=== PATIENT | male | born 1985 | race Caucasian/White ===

== ENCOUNTER 2016-11-02 12:11 | Emergency (ER) | payer SELFPAY ==
[2016-11-02 12:42] VITALS: RESP 18; TEMP 97.9
--- NOTE | 2016-11-02 15:11 | PDOC ---
Hand / Wrist Injury HPI - General Chief Complaint: Upper Extremity Problem/Injury Stated Complaint: pain left hand Date Seen by Provider: 11/02/16 Time Seen by Provider: 12:20 Source: POSITIVE: Patient Exam Limitations: POSITIVE: No limitations Nurse's Notes Reviewed & Considered: Yes - History of Present Illness Initial Comments: The patient is a 31-year-old male who presents to the emergency department with left hand pain. He states that he fell last night onto a glass ball injuring his left hand. He has continued pain and swelling primarily in the palm of his hand however also on the dorsum of his hand at the base of his thumb and index fingers, he denies any other associated injuries or complaints. He does not have any prior history of injury or fracture to his hand. Have you received a tetanus shot in the past 10 years?: Yes - Patient Home Medications Home Medications: Home Medications HYDROcodone/APAP 5/325 Tab [Hartman 5/325 Tab] 1 - 2 each PO Q6H PRN #15 tablet - Patient Allergies Allergies/Adverse Reactions: Allergies Allergy/AdvReac Type Severity Reaction Status Date / Time No Known Allergies Allergy Verified 11/02/16 12:13 Past Medical History - heen HEENT History: Denies History Cardiovascular History: Denies History Respiratory History: Denies History Gastrointestinal History: Denies History Genitourinary History: Denies History Endocrine History: Denies History Musculoskeletal History: Denies History Prosthesis or Implant: No Neurological History: Denies History Blood Disorders: Denies History Psychiatric History: Denies History History of Sexually Transmitted Diseases: No Male Reproductive History: Denies History Cancer History: Denies History In Past Year Been Physically Harmed or Verbally Threatened: No History of MDRO: No History of Other Communicable Diseases: No Tobacco Use: Former Smoker Alcohol Use: None Substance Use Type: None Previous Surgical History: No Past Medical History Reviewed: Reviewed - No Changes ROS - Limitations ROS Limitations: No Limitations (Review of systems otherwise noncontributory) Hand / Wrist Injury Exam - General Appearance General Appearance: POSITIVE: Alert, Cooperative, No Acute Distress - Extremities Upper Extremity: POSITIVE: Other (examination of the left hand does reveal significant swelling to the dorsum of his hand primarily at the base of his thumb, index and middle fingers. He does have bruising noted to his palm at the base of the thumb and index fingers, good cap refill in his finger and thumb tips, normal sensation to the fingertips and thumb, some tenderness to the snuffbox of the left wrist) Neurovascular / Tendon: POSITIVE: Sensation Normal, Motor Normal, No Vascular Compromise, Other (limited range of motion of his hand and wrist secondary to pain) Hand / Wrist Injury Progress - Results Reviewed by me Xrays/CTs/US Reviewed by me: Yes Radiology Findings: X-ray of the left hand is negative for any obvious fracture - Patient's Progress MDM / ED Course: I do not see any obvious fracture in the left hand on x-ray however this has not been read by the radiologist yet. The patient does have significant swelling and bruising as well as pain. He was placed in a thumb spica splint. He is advised to continue ice and elevation as well as regular use of ibuprofen 600 mg every 6 hours as needed for pain. He was also given a prescription for Hartman 5/325 which she can take as needed for pain. He is advised return to the emergency room if any increased pain, numbness, worsening or change in symptoms. He is advised follow-up with orthopedic surgery in 3-5 days. - Consult Counseled: POSITIVE: Patient, RE: Radiology Results, RE: DX, RE: Need for F/U Patient Care Time - Estimated PCT Patient Care Time (In Minutes): 15 Vital Signs - Recent Vital Signs Vital Signs: Vital Signs (Last 8 hours) Temp Pulse Resp BP Pulse Ox 11/02/16 12:15 97.9 F 108 H 18 158/94 94 - VS Reviewed Vital Signs Reviewed: Yes Discharge Clinical Impression: Hand injury Discharge Disposition: Discharged to Home Condition: Stable Prescriptions / Orders: HYDROcodone/APAP 5/325 Tab [Hartman 5/325 Tab] 1 - 2 each PO Q6H PRN #15 tablet PRN Reason: Pain Patient Instructions Given at Discharge: Hand Sprain (ED) Additional Instructions: The x-ray of your hand does not show any obvious visible fracture. There is a fair amount of swelling and tenderness and is possible that there may be a fracture that we are not seeing on x-ray. Recommend that she keep your hand/ wrist in the splint placed in the emergency department. Ice and elevate the left hand. Recommend ibuprofen 600 mg every 6 hours as needed for pain/ swelling. You've also been prescribed Hartman 5/325 which he can take one or 2 every 6 hours as needed for pain. Return to the emergency room if increased pain or numbness, worsening or change in symptoms. Recommend follow-up with orthopedic surgery in 3-5 days. Follow Up With: NONE,NONE [Primary Care Provider] -
--- NOTE | 2016-11-02 21:37 | DI ---
XR HAND MIN 3VW,11/02/2016 12:21 PM: Clinical History: Injury Previous Exam: None at this facility. Findings: 3 views of the left hand are obtained, and demonstrate anatomic alignment without fractures. The surr ounding soft tissues are unremarkable. Impression: No fractures.
== END 2016-11-02 13:05 | disposition home or self-care (01) ==
LOC: ER 12:11
DX: M79.642 Pain in left hand (principal); W01.198A Fall on same level from slipping, tripping and stumbling with subsequent striking against other object, initial encounter
CPT/HCPCS: 73130; 99282

== ENCOUNTER 2016-11-07 13:08 | Emergency (ER) | payer SELFPAY ==
--- NOTE | 2016-11-07 13:11 | PDOC ---
Hand / Wrist Injury HPI - General Chief Complaint: Upper Extremity Problem/Injury Stated Complaint: HAND RECHECK Date Seen by Provider: 11/07/16 Time Seen by Provider: 13:11 Source: POSITIVE: Patient Exam Limitations: POSITIVE: No limitations Nurse's Notes Reviewed & Considered: Yes - History of Present Illness Have you received a tetanus shot in the past 10 years?: Yes Body Location Affected: REPORTS: Upper Extremity (L) Timing: REPORTS: Constant Duration: >1 week Severity: Moderate Location at Time of Onset: REPORTS: Home Context: REPORTS: Fall Location of Injury: REPORTS: Left, Hand Quality: REPORTS: "Pain" Modifying Factors: REPORTS: Movement, Rest Any Prior Injuries Related to Current Complaint?: Yes (patient fell and injured his hand over week ago and was evaluated here ) - Patient Home Medications Home Medications: Home Medications Clonazepam 1 mg PO BID 11/07/16 Lisinopril 40 mg PO DAILY 11/07/16 - Patient Allergies Allergies/Adverse Reactions: Allergies Allergy/AdvReac Type Severity Reaction Status Date / Time No Known Allergies Allergy Verified 11/07/16 13:13 Past Medical History - heen HEENT History: Denies History Cardiovascular History: Denies History Respiratory History: Denies History Gastrointestinal History: Denies History Genitourinary History: Denies History Endocrine History: Denies History Musculoskeletal History: Denies History Prosthesis or Implant: No Neurological History: Denies History Blood Disorders: Denies History Psychiatric History: Denies History History of Sexually Transmitted Diseases: No Cancer History: Denies History History of MDRO: No History of Other Communicable Diseases: No Alcohol Use: None Substance Use Type: None Previous Surgical History: No ROS - Limitations ROS Limitations: No Limitations Constitution: REPORTS: Denies Symptoms Cardiovascular: REPORTS: Denies Cardiac Symptoms Respiratory: REPORTS: Denies Resp Symptoms Neurological: REPORTS: Denies Neuro Symptoms Gastrointestinal: REPORTS: Denies GI Symptoms Endocrine: REPORTS: Denies Symptoms Musculoskeletal: REPORTS: Recent Injury (Patient with injury to his left hand after a fall onto the dorsum of his hand. He continues to have swelling and decreased range of motion secondary to pain. He recently took his splint off and the swelling began.) Genitourinary: REPORTS: Denies Symptoms Eyes: REPORTS: Denies Symptoms ENT: REPORTS: Denies Symptoms Skin: REPORTS: Denies Skin Symptoms Lympathic: REPORTS: Denies Lympathic Symptoms Immunologic: POSITIVE: Denies Symptoms Psychiatric: POSITIVE: Denies Psych Symptoms Hand / Wrist Injury Exam - General Appearance General Appearance: POSITIVE: Alert, Cooperative, No Acute Distress, No Evidence of Trauma - Extremities Upper Extremity: POSITIVE: Soft Tissue Tenderness (left hand), Swelling (left hand) Neurovascular / Tendon: POSITIVE: Sensation Normal, Motor Normal, No Vascular Compromise, Tendon Function Normal Skin: POSITIVE: Warm, Dry - HEENT HEENT: POSITIVE: Head Inspection Nml, Eyes Inspection Nml, Ears Inspection Nml, Nose Inspection Nml, PERRL, EOMI - Respiratory / CVS Respiratory / CVS: POSITIVE: No Respiratory Distress - Abdomen Abdomen: Denies Tenderness: (All Quadrants) Hand / Wrist Injury Progress - Results Reviewed by me Xrays/CTs/US Reviewed by me: Yes Discussed with Radiologist: No - Patient's Progress Re-Examine Time: 13:51 Status: POSITIVE: Unchanged MDM / ED Course: Patient was examined, x-ray of his hand was obtained. Next Findings: X-ray as read by me shows no acute osseous abnormality. Assessment: Hand pain with swelling status post fall. Plan: Discharge home. He receives a note for light duty for another week, and instructions to follow-up with orthopedics. - Consult Counseled: POSITIVE: Patient, RE: Radiology Results, RE: DX, RE: Need for F/U Patient Care Time - Estimated PCT Patient Care Time (In Minutes): 15 Vital Signs - Recent Vital Signs Vital Signs: Vital Signs (Last 8 hours) Temp Pulse Resp BP Pulse Ox 11/07/16 13:17 96.4 F L 90 18 148/116 96 - VS Reviewed Vital Signs Reviewed: Yes Discharge Clinical Impression: Pain of left hand Discharge Disposition: Discharged to Home Condition: Good Patient Instructions Given at Discharge: Arthralgia (ED)
[2016-11-07 13:26] VITALS: RESP 18; TEMP 96.4
--- NOTE | 2016-11-10 07:51 | DI ---
XR HAND MIN 3VW,11/07/2016 1:10 PM: Clinical History: Left hand pain. Previous Exam: None at this facility. Findings: 3 views of the left hand are obtained, and demonstrate anatomic alignment without fractures. Surrounding soft tissues are unremarkable. Impression: Normal left hand.
== END 2016-11-07 14:00 | disposition home or self-care (01) ==
LOC: ER 13:08
DX: M79.642 Pain in left hand (principal); R22.32 Localized swelling, mass and lump, left upper limb
CPT/HCPCS: 73130; 99282

== ENCOUNTER 2018-05-28 08:16 | Inpatient (IN) ==
[2018-05-28] MEDS ORDERED: NITROGLYCERIN 0.4 MG SL TAB (BOTTLE OF 3) SL ONE (08:25)
--- NOTE | 2018-05-28 08:33 | PDOC ---
Psych/Suicidal/OD HPI - General Chief Complaint: Psychiatric Complaint Stated Complaint: anxiety, not sleeping Date Seen by Provider: 05/28/18 Time Seen by Provider: 08:21 Source: POSITIVE: Patient Exam Limitations: POSITIVE: No limitations Nurse's Notes Reviewed & Considered: Yes - History of Present Illness Initial Comments: This is a well-developed, well-nourished, 32-year-old male, complaining of chest pain, shortness of breath, headache, sore throat, and vomiting. Patient has symptoms that have been escalating over the last several days with recent increase of personal stress related to divorce and unemployment. Patient states he has a headache, mild sore throat, chest pain that he describes as pressure without radiation. The chest pressure is a band across his chest like a tight T-shirt. He does have shortness of breath, nausea with occasional vomiting, no diarrhea, no hematuria or dysuria, he does have myalgias and arthralgias, he has subjective fever with chills and sweats. Timing: REPORTS: Constant Duration: Unknown Severity: Severe Quality: REPORTS: "Pain", Pressure Intent: DENIES: Suicide, Wants to Escape, Accidental, No Answer, No Prior Suicide Thoughts, Prior Suicidal Thoughts, Other Context: REPORTS: Situational Problems re:, Spouse, Work, Legal Problems Associated Symptoms: REPORTS: Depressed, Frustrated Arrived By: REPORTS: Private Vehicle Similar Symptoms Previously: No Recent Care Received: REPORTS: Denies Any Prior Injuries Related to Current Complaint?: No - Patient Home Medications Home Medications: Home Medications Medication Instructions Recorded Confirmed Clonazepam 1 mg PO BID 11/07/16 05/28/18 Lisinopril 40 mg PO DAILY 11/07/16 05/28/18 - Patient Allergies Allergies/Adverse Reactions: Allergies Allergy/AdvReac Type Severity Reaction Status Date / Time No Known Allergies Allergy Verified 05/28/18 08:27 Past Medical History - heen HEENT History: Denies History Cardiovascular History: Denies History Respiratory History: Denies History Gastrointestinal History: Denies History Genitourinary History: Denies History Endocrine History: Denies History Musculoskeletal History: Denies History Prosthesis or Implant: No Neurological History: Denies History Blood Disorders: Denies History Psychiatric History: Denies History History of Sexually Transmitted Diseases: No Cancer History: Denies History History of MDRO: No History of Other Communicable Diseases: No Alcohol Use: None In the Past 12 Months, Have Used or Abuse Any Substance: None Previous Surgical History: No ROS - Limitations ROS Limitations: No Limitations Constitution: REPORTS: Chills, Fever, Diaphoresis Cardiovascular: REPORTS: Chest Pain, Heart Racing Respiratory: REPORTS: Shortness Of Breath Neurological: REPORTS: Headache Gastrointestinal: REPORTS: Abdominal Pain, Nausea, Vomitting Endocrine: REPORTS: Denies Symptoms Musculoskeletal: REPORTS: Joint Pain, Muscle Aches Genitourinary: REPORTS: Denies Symptoms Eyes: REPORTS: Denies Symptoms ENT: REPORTS: Sore Throat Skin: REPORTS: Denies Skin Symptoms Lympathic: REPORTS: Denies Lympathic Symptoms Immunologic: POSITIVE: Denies Symptoms Psychiatric: POSITIVE: Anxiety, Depression Psych/Suicidal/OD Exam - General Appearance General Appearance: POSITIVE: Alert, Severe Distress, Tremors - HEENT HEENT: POSITIVE: Head Inspection Nml, Eyes Inspection Nml, Ears Inspection Nml, Nose Inspection Nml, Oral/Dental Inspect. Nml, Pharynx Inspect. Nml, PERRL, EOMI - Pupil Size Pupil Size: 5 mm: Bilateral - Neurological/Psychological Mental Status: POSITIVE: Depressed Mood, Depressed Affect Orientation: POSITIVE: Oriented x3 Cranial Nerves: POSITIVE: cost specialist Intact as Tested Sensory/Motor: POSITIVE: Normal Motor Response, Normal Sensory Response, Normal Gait - Neck/Back Neck/Back: POSITIVE: Normal Inspection, Supple - Respiratory Respiratory: POSITIVE: Breath Sounds Normal, Other (Tachypnea) - CVS Cardiovascular: POSITIVE: Heart Sounds Normal, Strong Pulses, Tachycardia Peripheral Pulses: Radial (L): 4+ - Abdomen Abdomen: Soft: (All Quadrants), Normal Bowel Sounds: (All Quadrants), Denies Tenderness: (All Quadrants), No Splenomegaly: (All Quadrants), No Hepatomegaly: (All Quadrants), No Guarding: (All Quadrants), No Rebound: (All Quadrants), No Palpable Pulse: (All Quadrants), No Palpabale Mass: (All Quadrants), No Distention: (All Quadrants), No Rigidity: (All Quadrants) - Skin Skin: POSITIVE: Intact, Normal For Race, Warm, Dry, No Rash - Extremities Extremity: Non-Tender: (All Extremities), Normal ROM: (All Extremities), Normal Inspection: (All Extremities) Psych/Suicidal/OD Progress - Results Reviewed by me CBC and BMP: 05/28/18 08:28 05/28/18 08:28 Lab Results:: Laboratory Results 05/28/18 05/28/18 05/28/18 08:28 08:28 08:28 WBC 9.69 RBC 5.11 Hgb 18.4 H Hct 50.5 MCV 98.8 H MCH 36.0 H MCHC 36.4 RDW Std Deviation 46.0 RDW Coeff of [place] 12.8 Plt Count 336 MPV 8.9 Neutrophils % (Manual) 60 Band Neutrophils % 1 Lymphocytes % (Manual) 25 Monocytes % (Manual) 10 Eosinophils % (Manual) 3 Basophils % (Manual) 1 Metamyelocytes % 0 Myelocytes % 0 Promyelocytes % 0 Blast Cells 0 WBC Morphology Comment See comments Plt Morphology Comment Normal morphology RBC Morph Comment See comments D-Dimer 0.65 H VBG pH VBG pCO2 VBG HCO3 VBG Base Excess Sodium 140 Potassium 3.9 Chloride 99 Carbon Dioxide 21 L Anion Gap 20 BUN 11 Creatinine 0.8 Estimated GFR > 60 BUN/Creatinine Ratio 13.75 Glucose 103 Calculated Osmolality 288.0 Lactic Acid Calcium 9.1 Magnesium 1.6 Total Bilirubin 1.3 H AST 87 H ALT 54 Alkaline Phosphatase 72 Troponin I Handheld NT-Pro-B Natriuret Pep 26.4 Total Protein 9.0 H Albumin 5.1 H Globulin 3.9 Albumin/Globulin Ratio 1.30 Lipase 130 Salicylates < 1.0 Acetaminophen < 10.0 Serum Alcohol 18 H 05/28/18 05/28/18 05/28/18 08:28 08:28 08:35 WBC RBC Hgb Hct MCV MCH MCHC RDW Std Deviation RDW Coeff of [place] Plt Count MPV Neutrophils % (Manual) Band Neutrophils % Lymphocytes % (Manual) Monocytes % (Manual) Eosinophils % (Manual) Basophils % (Manual) Metamyelocytes % Myelocytes % Promyelocytes % Blast Cells WBC Morphology Comment Plt Morphology Comment RBC Morph Comment D-Dimer VBG pH 7.53 H VBG pCO2 30 L VBG HCO3 25 VBG Base Excess 3 H Sodium Potassium Chloride Carbon Dioxide Anion Gap BUN Creatinine Estimated GFR BUN/Creatinine Ratio Glucose Calculated Osmolality Lactic Acid 5.4 H Calcium Magnesium Total Bilirubin AST ALT Alkaline Phosphatase Troponin I Handheld 0.000 NT-Pro-B Natriuret Pep Total Protein Albumin Globulin Albumin/Globulin Ratio Lipase Salicylates Acetaminophen Serum Alcohol EKG Interpreted/Reviewed By Me:: Yes (sinus tachycardia with no ST elevations.) EKG Interpretation:: POSITIVE: Abnormal EKG - Patient's Progress Pain Medication Addressed: POSITIVE: Yes Re-Examine Time: 09:15 Status: POSITIVE: Improved MDM / ED Course: Patient was evaluated, an IV started, blood drawn and sent to the lab for studies, EKG was obtained. CT scan of his chest was ordered. The end of my shift is occurred and Dr. Jama Dyer has taken over care of this patient for elucidation of laboratory findings, radiographic findings, and disposition please see his dictation. Working assessment: #1 tachycardia. #2 anxiety. #3 probable alcohol withdrawal versus methamphetamine abuse. Patient Care Time - Estimated PCT Patient Care Time (In Minutes): 30 Vital Signs - VS Reviewed Vital Signs Reviewed: Yes Discharge Clinical Impression: Tachycardia, Anxiety, Alcohol withdrawal Condition: Stable Follow Up With: NONE,NONE [Primary Care Provider] -
[2018-05-28] MEDS ORDERED: ONDANSETRON 4 MG/2 ML VIAL IVP ONE (08:35)
[2018-05-28] MEDS ORDERED: KETOROLAC 15 MG/1 ML VIAL IVP ONE (08:35)
[2018-05-28] MEDS ORDERED: LORazepam 2 MG/1 ML VIAL IVP ONE ×2 (08:35→10:32)
[2018-05-28] MEDS ORDERED: Sodium Chloride 0.9% 1,000 ML PRIMARY IV ONE (08:35)
[2018-05-28 08:45] LABS: VENOUS PH 7.53 (7.32-7.42)
[2018-05-28 08:47] LABS: Hematocrit [HCT] 50.5 % (42.0-52.0); Hemoglobin [HGB] 18.4 g/dL (14.0-18.0); MEAN CORPUSCULAR HGB CONC 36.4 g/dL (33-37); MEAN CORPUSCULAR VOLUME 98.8 FL (80-90); MEAN PLATELET VOLUME 8.9 FL (7.4-12.2); RED BLOOD COUNT 5.11 10^6/uL (4.70-6.10)
[2018-05-28 08:59] LABS: BLOOD UREA NITROGEN 11 mg/dL (7-22); BUN/CREATININE RATIO 13.75 (6-20); LIPASE 130 IU/L (23-300); SERUM ALBUMIN 5.1 g/dL (3.5-4.8)
[2018-05-28 09:01] LABS: SALICYLATE < 1.0 mg/dl (0-20)
[2018-05-28 09:09] LABS: BAND NEUTROPHILS % 1 % (0-10); BASOPHILS % (MANUAL) 1 % (0-1); EOSINOPHILS % (MANUAL) 3 % (0-8); METAMYELOCYTES % 0 %; MONOCYTES % (MANUAL) 10 % (0-12); MYELOCYTES % 0 %; NEUTROPHILS % (MANUAL) 60 % (50-80); PLATELET MORPHOLOGY COMMENT NORMAL MORPHOLOGY (NORM); PROMYELOCYTES % 0 %; RBC MORPHOLOGY COMMENT SEE COMMENTS (NORM); WBC MORPHOLOGY COMMENT SEE COMMENTS (NORM)
--- NOTE | 2018-05-28 09:12 | DI ---
AP CHEST X-RAY, 05/28/2018 8:35 AM : Clinical History: Chest pain. Shortness of breath. Previous Exam: 10/16/2008. Soft Tissues: No acute soft tissue or bony abnormality. Heart: Normal heart. Lungs: No infiltrate or effusion. Mediastinum: Normal mediastinum. Nodules: No pulmonary nodules. Bones: Normal. Reading: Normal chest x-ray. There has been no significant interval change.
[2018-05-28] MEDS ORDERED: Sodium Chloride 0.9% 1,000 ML, Magnesium Sulfate 2gm (Premix) 50 ML with Multivitamin I... IV ONE ×5 (09:19)
[2018-05-28] MEDS ORDERED: Sodium Chloride 0.9% 1,000 ML with Multivitamin Inj 10 ML, Thiamine Inj 100 MG, Folic A... IV ONE ×5 (09:45)
--- NOTE | 2018-05-28 10:11 | DI ---
CT CTA Chest Non-Coronary WWO 05/28/2018 8:35 AM History: [facility] [place] [facility] ^cp/sob/tachy Comparison: Chest x-ray from earlier the same day. Procedure: CT angiography of the pulmonary arteries was performed after the administration of 70 mL o f Isovue intravenous contrast. Findings: There is normal opacification of the pulmonary arteries with no evidence of filling defect. Evaluation of the lungs demonstrates lingular scar versus atelectasis with no consolidation, pneumot horax, or pleural effusion. Multiple bilateral pulmonary nodules are noted on series 3 as follows: le ft lower lobe 5 mm image 39, right upper lobe 3 mm calcified subpleural granuloma image 43, right upp er lobe 2 mm image 45, right oblique fissure 4 mm elsy-fissural nodule image 50, right lower lobe 3 m m image 55. The airways are patent with no endobronchial lesion. There is no mediastinal or hilar lym phadenopathy. The aorta and branch vessels demonstrate normal course and caliber. Heart size is withi n normal limits with no pericardial effusion. The thyroid exhibits normal CT morphology. The visualized upper abdominal structures are unremarkable. The osseous structures are normal for age. There is no evidence of acute or healing rib fractures. Impression: 1. No main or segmental pulmonary embolism. 2. Multiple bilateral pulmonary nodules, the largest measuring 5 mm in the left lower lobe. [place] [employer] 2017 guidelines for management of incidentally detected pulmonary nodules is as follows: Single solid lung nodule less than 6 mm: Low risk: No routine follow-up. High risk: Optional CT at 12 months.
--- NOTE | 2018-05-28 11:09 | PDOC ---
Transfer of Care - Care Accepted Time Care Transferred: 09:00 Report from Transferring Physician Received: Yes (Dr. Melgar) MDM / ED Course: The patient is a 32-year-old male who presented to the emergency department with multiple complaints. Please refer to Dr. Melgar's note for details of his initial presentation. Patient care was transferred with labs, CT of the chest and mental health consultation pending. The patient does admit that he has had a lot of stress the past couple of years. He has been going through divorce and was laid off from his job 2 years ago. He states that he has been drinking heavily especially last week. He has been drinking either 240 ounce beers or a fifth daily, sometimes more. He last had anything to drink on Thursday. When he presented here to the emergency department his CIWA score was 40. He did receive 2 mg of Ativan as well as a bolus of fluid. He was hypertensive and tachycardic with heart rate in the 140s to 150s initially. He also reports that he has not taken his lisinopril for several months as he has been unable to afford medications. Home Medications: Home Medications Clonazepam 1 mg PO BID 11/07/16 Lisinopril 40 mg PO DAILY 11/07/16 Allergies/Adverse Reactions: Allergies No Known Allergies Allergy (Verified 05/28/18 08:27) Vital Signs Reviewed: Yes - Pending Patient Care Items Pending Patient Care Items: POSITIVE: Labs, CT / MRI Results, Psychiatric Consult - Re-Evaluation of Patient Disposition of Patient: POSITIVE: Admitted Counseled: POSITIVE: Patient, RE: Lab Results, RE: Radiology Results, RE: DX, RE: Need for F/U Clinical Impression Documented: Yes - Results Reviewed Lab Results: Laboratory Results 05/28/18 05/28/18 05/28/18 08:28 08:28 08:28 WBC 9.69 RBC 5.11 Hgb 18.4 H Hct 50.5 MCV 98.8 H MCH 36.0 H MCHC 36.4 RDW Std Deviation 46.0 RDW Coeff of [place] 12.8 Plt Count 336 MPV 8.9 Neutrophils % (Manual) 60 Band Neutrophils % 1 Lymphocytes % (Manual) 25 Monocytes % (Manual) 10 Eosinophils % (Manual) 3 Basophils % (Manual) 1 Metamyelocytes % 0 Myelocytes % 0 Promyelocytes % 0 Blast Cells 0 WBC Morphology Comment See comments Plt Morphology Comment Normal morphology RBC Morph Comment See comments D-Dimer 0.65 H VBG pH VBG pCO2 VBG HCO3 VBG Base Excess Sodium 140 Potassium 3.9 Chloride 99 Carbon Dioxide 21 L Anion Gap 20 BUN 11 Creatinine 0.8 Estimated GFR > 60 BUN/Creatinine Ratio 13.75 Glucose 103 Calculated Osmolality 288.0 Lactic Acid Calcium 9.1 Magnesium 1.6 Total Bilirubin 1.3 H AST 87 H ALT 54 Alkaline Phosphatase 72 CK-MB (CK-2) Troponin I Handheld C-Reactive Protein NT-Pro-B Natriuret Pep 26.4 Total Protein 9.0 H Albumin 5.1 H Globulin 3.9 Albumin/Globulin Ratio 1.30 Lipase 130 TSH Free T4 Salicylates < 1.0 Acetaminophen < 10.0 Serum Alcohol 18 H Group A Strep Screen 05/28/18 05/28/18 05/28/18 08:28 08:28 08:28 WBC RBC Hgb Hct MCV MCH MCHC RDW Std Deviation RDW Coeff of [place] Plt Count MPV Neutrophils % (Manual) Band Neutrophils % Lymphocytes % (Manual) Monocytes % (Manual) Eosinophils % (Manual) Basophils % (Manual) Metamyelocytes % Myelocytes % Promyelocytes % Blast Cells WBC Morphology Comment Plt Morphology Comment RBC Morph Comment D-Dimer VBG pH VBG pCO2 VBG HCO3 VBG Base Excess Sodium Potassium Chloride Carbon Dioxide Anion Gap BUN Creatinine Estimated GFR BUN/Creatinine Ratio Glucose Calculated Osmolality Lactic Acid 5.4 H Calcium Magnesium Total Bilirubin AST ALT Alkaline Phosphatase CK-MB (CK-2) 0.44 Troponin I Handheld 0.000 C-Reactive Protein NT-Pro-B Natriuret Pep Total Protein Albumin Globulin Albumin/Globulin Ratio Lipase TSH 3.52 Free T4 0.67 L Salicylates Acetaminophen Serum Alcohol Group A Strep Screen 05/28/18 05/28/18 05/28/18 08:35 08:50 09:18 WBC RBC Hgb Hct MCV MCH MCHC RDW Std Deviation RDW Coeff of [place] Plt Count MPV Neutrophils % (Manual) Band Neutrophils % Lymphocytes % (Manual) Monocytes % (Manual) Eosinophils % (Manual) Basophils % (Manual) Metamyelocytes % Myelocytes % Promyelocytes % Blast Cells WBC Morphology Comment Plt Morphology Comment RBC Morph Comment D-Dimer VBG pH 7.53 H VBG pCO2 30 L VBG HCO3 25 VBG Base Excess 3 H Sodium Potassium Chloride Carbon Dioxide Anion Gap BUN Creatinine Estimated GFR BUN/Creatinine Ratio Glucose Calculated Osmolality Lactic Acid Calcium Magnesium Total Bilirubin AST ALT Alkaline Phosphatase CK-MB (CK-2) Troponin I Handheld C-Reactive Protein < 0.5 NT-Pro-B Natriuret Pep Total Protein Albumin Globulin Albumin/Globulin Ratio Lipase TSH Free T4 Salicylates Acetaminophen Serum Alcohol Group A Strep Screen Negative EKG Interpretation:: POSITIVE: Other (EKG shows sinus tachycardia with no acute changes otherwise) - Consult Recommendations:: The patient was feeling better after 2 mg of Ativan and a fluid bolus. He did receive a banana bag. His pulse remained in the 120s and blood pressure remained in the 160s/110's. His CIWA score came down to 21 from 40. He received a second dose of Ativan 1 mg IV. His workup was relatively unremarkable other than a mildly elevated d-dimer and elevated lactate. CTA of the chest was negative for PE however did show several small (less than 5 mm) nodules in the lung bases. Mental health consultation was obtained from [facility]. He has agreed to pursue alcohol treatment as an outpatient and has an appointment on Thursday afternoon to discuss this. The patient does appear to be having significant alcohol withdrawal and decision was made to admit for further treatment. Dr. Stone has agreed to admit the patient. The patient is in agreement with this plan. Patient Care Time - Estimated PCT Patient Care Time (In Minutes): 25 Vital Signs - Recent Vital Signs Vital Signs: Vital Signs (Last 8 hours) Temp Pulse Pulse Resp BP BP Pulse Ox 05/28/18 10:31 98.1 F 111 H 20 162/110 05/28/18 08:20 96 F L 148 H 148 H 22 162/119 162/119 95 - VS Reviewed Vital Signs Reviewed: Yes Discharge Clinical Impression: Tachycardia, Anxiety, Alcohol withdrawal, Hypertension Discharge Disposition: Admit to Inpatient Condition: Stable Follow Up With: NONE,NONE [Primary Care Provider] - Date Decision to Admit to Inpatient: 05/28/18 Time Decision to Admit to Inpatient: 10:55
--- NOTE | 2018-05-28 11:18 | EKG ---
[address] [address] Measurements Intervals Switchback Rate: 131 P: 47 NV: 150 QRS: -7 QRSD: 89 T: 46 QT: 300 QTc: 377 Interpretive Statements SINUS TACHYCARDIA WITH OCCASIONAL VENTRICULAR PREMATURE COMPLEXES ABNORMAL RHYTHM ECG No previous ECG available for comparison Electronically Signed On 05-28-18 17:20:25 MST by A[facility] H[facility]os [email or web address]
[2018-05-28 11:57] VITALS: RESP 16
[2018-05-28] MEDS ORDERED: NICOTINE 21 MG /DAY PATCH TRANSDERM PRN (12:06)
[2018-05-28] MEDS ORDERED: MAG HYDROX/AL HYDROX/SIMETH 30 ML SUSP PO PRN (12:06)
[2018-05-28] MEDS ORDERED: Sodium Chloride 0.9% 1,000 ML with Multivitamin Inj 10 ML, Thiamine Inj 100 MG, Folic A... IV SCH ×5 (12:06)
[2018-05-28] MEDS ORDERED: LIDOCAINE W/ SODIUM BICARB 0.5 ML SYR SUBD PRN (12:06)
[2018-05-28] MEDS ORDERED: ONDANSETRON 4 MG/2 ML VIAL IVP PRN (12:06)
[2018-05-28] MEDS ORDERED: Loperamide Tab 2 MG TABLET PO PRN (12:06)
[2018-05-28] MEDS ORDERED: ACETAMINOPHEN 500 MG TABLET PO PRN (12:06)
[2018-05-28] MEDS ORDERED: MAGNESIUM 400 MG/5 ML - 30 ML (MILK OF MAGNESIA) PO PRN (12:06)
[2018-05-28 12:14] VITALS: BP 145/103; TEMP 98.4; O2SAT 95
[2018-05-28] MEDS ORDERED: Patch Removal PATCH TRANSDERM PRN (12:20)
--- NOTE | 2018-05-28 14:06 | PDOC ---
HPI - History of Present Illness Date of Service: 05/28/18 Time of Service: 13:49 Chief Complaint: palpitations History of Present Illness: This is a 32 year old who presented to the emergency room with palpitations. He has been drinking alcohol heavily over the past two years due to a divorce, deaths in the family, loss of job. He stopped drinking alcohol a few days ago stating he felt sick drinking alcohol. The pounding in his chest started today. He did not have shortness of breath. He was given ativan for withdrawal symptoms and improved. EKG shows SVT with PVC. Has nausea but no vomiting. Went to an AA meeting in the past, but no prior rehab attempts. He says he wants to quit alcohol. He talked with [facility] and has an appointment with them on Thursday. The palpitations are resolved with alcohol withdrawal tr eatment to this point. Images were negative for blood clots. No other exacerbating factors. He felt like he was in a diet with the symptoms which is why he came into the emergency room. He states specifically that he does not have any suicidal thoughts or homicidal ideation. Past Medical History Medical History: 1. alcohol abuse. 2. Tobacco abuse. 3. Has been treated with lisinopril for hypertension but has not been on therapy for some time. He cannot afford it. Surgical History: no prior surgeries Pertinent Family History: no diabetes and no coronary artery disease Past Social History: . Has 2 children described as healthy. Not working currently. Lives with his parents in [place], [place], heavy alcohol use and smokes tobacco Tobacco Use: Current Every Day Smoker In the Past 12 Months, Have Used or Abuse Any of the Following Substance: None Alcohol Use: Heavy Medication / Allergies Home Medications: Home Medications Medication Instructions Recorded Confirmed Type Clonazepam 1 mg PO BID 11/07/16 05/28/18 History Lisinopril 40 mg PO DAILY 11/07/16 05/28/18 History Allergies/Adverse Reactions: Allergies Allergy/AdvReac Type Severity Reaction Status Date / Time No Known Allergies Allergy Verified 05/28/18 12:07 Review of Systems - Review of Systems All Systems: Reviewed & No Additional Complaints Except as Stated (I did a 12 point review systems and other than that discussed in history present illness the review systems is negative.) Exam - Vitals Vital Signs: Vital Signs Temperature 98.4 F Temperature Source Oral Pulse Rate [Pulse Oximeter] 98 Pulse Rate 100 Respiratory Rate 16 Blood Pressure [Left Arm] 145/103 Blood Pressure 145/103 Pulse Ox 95 Oxygen Delivery Method Room Air Height 6 ft 1 in Weight 223 lb 9.6 oz - General General Appearance: No Acute Distress, Cooperative - Head Head Exam: Normal Inspection, Normocephalic, Atraumatic - Eye Eye Exam: POSITIVE: No Scleral Icterus - ENT ENT Exam: POSITIVE: Mucous Membranes Moist - Neck Neck Exam: Normal Inspection, No Tenderness, No Lymphadenopathy, No Thyromegaly, JVP is not Raised - Respiratory Respiratory Exam: POSITIVE: Clear to Auscultation - Bilaterally, Breathing Non Labored, Normal to Percussion and Palpation - Cardiovascular Cardiovascular Exam: POSITIVE: RRR, No Murmur, No Clicks, No Gallops, No Rubs, No JVD Additional Cardiovascular Details: Not tachycardic when I examined him. - GI/Abdominal GI/Abdominal Exam: POSITIVE: Normal Bowel Sounds, Non Tender, Non Distended, Soft - Rectal Rectal Exam: POSITIVE: Deferred - External Exam: POSITIVE: Deferred Exam: POSITIVE: Deferred - Extremities Extremities Exam: POSITIVE: No Clubbing Present, No Edema Present, No Cyanosis Present - Back Back Exam: POSITIVE: Normal Inspection, No CVA Tenderness - Neurological Neurological Exam: POSITIVE: Alert, Oriented x 3, No Facial Droop, Speech Intact / Clear, Moves All Extremities Equally - Psychiatric Psychiatric Exam: POSITIVE: Flat Affect, Depressed - Integumentary Integumentary Exam: POSITIVE: Normal Color, Warm, Dry, Intact Results - Labs CBC and BMP: 05/28/18 08:28 05/28/18 08:28 Additional Lab Results: Laboratory Results 05/28/18 05/28/18 05/28/18 08:28 08:28 08:28 WBC 9.69 RBC 5.11 Hgb 18.4 H Hct 50.5 MCV 98.8 H MCH 36.0 H MCHC 36.4 RDW Std Deviation 46.0 RDW Coeff of [place] 12.8 Plt Count 336 MPV 8.9 Neutrophils % (Manual) 60 Band Neutrophils % 1 Lymphocytes % (Manual) 25 Monocytes % (Manual) 10 Eosinophils % (Manual) 3 Basophils % (Manual) 1 Metamyelocytes % 0 Myelocytes % 0 Promyelocytes % 0 Blast Cells 0 WBC Morphology Comment See comments Plt Morphology Comment Normal morphology RBC Morph Comment See comments D-Dimer 0.65 H VBG pH VBG pCO2 VBG HCO3 VBG Base Excess Sodium 140 Potassium 3.9 Chloride 99 Carbon Dioxide 21 L Anion Gap 20 BUN 11 Creatinine 0.8 Estimated GFR > 60 BUN/Creatinine Ratio 13.75 Glucose 103 Calculated Osmolality 288.0 Lactic Acid Calcium 9.1 Magnesium 1.6 Total Bilirubin 1.3 H AST 87 H ALT 54 Alkaline Phosphatase 72 CK-MB (CK-2) Troponin I Handheld C-Reactive Protein NT-Pro-B Natriuret Pep 26.4 Total Protein 9.0 H Albumin 5.1 H Globulin 3.9 Albumin/Globulin Ratio 1.30 Lipase 130 TSH Free T4 Salicylates < 1.0 Acetaminophen < 10.0 Serum Alcohol 18 H Group A Strep Screen 05/28/18 05/28/18 05/28/18 08:28 08:28 08:28 WBC RBC Hgb Hct MCV MCH MCHC RDW Std Deviation RDW Coeff of [place] Plt Count MPV Neutrophils % (Manual) Band Neutrophils % Lymphocytes % (Manual) Monocytes % (Manual) Eosinophils % (Manual) Basophils % (Manual) Metamyelocytes % Myelocytes % Promyelocytes % Blast Cells WBC Morphology Comment Plt Morphology Comment RBC Morph Comment D-Dimer VBG pH VBG pCO2 VBG HCO3 VBG Base Excess Sodium Potassium Chloride Carbon Dioxide Anion Gap BUN Creatinine Estimated GFR BUN/Creatinine Ratio Glucose Calculated Osmolality Lactic Acid 5.4 H Calcium Magnesium Total Bilirubin AST ALT Alkaline Phosphatase CK-MB (CK-2) 0.44 Troponin I Handheld 0.000 C-Reactive Protein NT-Pro-B Natriuret Pep Total Protein Albumin Globulin Albumin/Globulin Ratio Lipase TSH 3.52 Free T4 0.67 L Salicylates Acetaminophen Serum Alcohol Group A Strep Screen 05/28/18 05/28/18 05/28/18 08:35 08:50 09:18 WBC RBC Hgb Hct MCV MCH MCHC RDW Std Deviation RDW Coeff of [place] Plt Count MPV Neutrophils % (Manual) Band Neutrophils % Lymphocytes % (Manual) Monocytes % (Manual) Eosinophils % (Manual) Basophils % (Manual) Metamyelocytes % Myelocytes % Promyelocytes % Blast Cells WBC Morphology Comment Plt Morphology Comment RBC Morph Comment D-Dimer VBG pH 7.53 H VBG pCO2 30 L VBG HCO3 25 VBG Base Excess 3 H Sodium Potassium Chloride Carbon Dioxide Anion Gap BUN Creatinine Estimated GFR BUN/Creatinine Ratio Glucose Calculated Osmolality Lactic Acid Calcium Magnesium Total Bilirubin AST ALT Alkaline Phosphatase CK-MB (CK-2) Troponin I Handheld C-Reactive Protein < 0.5 NT-Pro-B Natriuret Pep Total Protein Albumin Globulin Albumin/Globulin Ratio Lipase TSH Free T4 Salicylates Acetaminophen Serum Alcohol Group A Strep Screen Negative - EKG Data -: EKG Interpreted by Me Rate: Tachycardia EKG Shows Normal: Sinus Rhythm - EKG Data EKG Interpretation: Other (Occasional PVC) - Imaging Status: Image Reviewed by Me (Chest x-ray negative for pneumonia. A CT scan showed pulmonary nodules per radiologist. I did not see any evidence of pneumonia on my view of the study.) Assessment and Plan - Patient Problems (1) Alcohol withdrawal Current Visit: Yes Status: Acute Code(s): F10.239 - Alcohol dependence with withdrawal, unspecified Qualifiers: Complication of substance-induced condition: uncomplicated Qualified Code(s): F10.230 - Alcohol dependence with withdrawal, uncomplicated (2) Alcohol abuse Current Visit: Yes Status: Acute Code(s): F10.10 - Alcohol abuse, uncomplicated (3) Depression Current Visit: Yes Status: Acute Code(s): F32.9 - Major depressive disorder, single episode, unspecified Qualifiers: Depression Type: other depression Qualified Code(s): F32.89 - Other specified depressive episodes - Assessment / Plan Additional Assessment/Plan Details: Admit for [facility] protocol. Banana bag with electrolyte replacement and thiamine replacement. If the patient gets worse, develops hallucinations, nor has severe alcohol withdrawal syndrome, consider Precedex but I think we can try this with Ativan and Librium initially. The patient has several symptoms of depression including insomnia, irritability, isolation. He does not have suicidal ideation or homicidal ideation. He's tried fluoxetine in the past without good luck. I'll try Lexapro. He is agreeable to this. We had a long discussion about the pros and cons of antidepressant therapy for depression. He seems motivated to try and quit drink ing and treat his depression and states to me that his current lifestyle is not working for him. Discussed plan with patient above, RN present in room, everyone agreed with the plan.
[2018-05-28] MEDS ORDERED: Magnesium Sulfate 2gm (Premix) 2 GM/50 ML BAG IV ONE (14:10)
[2018-05-28] MEDS ORDERED: ESCITALOPRAM 10 MG TABLET PO ONE (14:13)
[2018-05-28] MEDS: ChlordiazePOXIDE Cap 25 MG CAPSULE PO SCH ×2 (15:22→23:17)
[2018-05-28] MEDS: LORazepam Inj(ETOH withdrawal) 2 MG/ML VIAL IVP PRN ×3 (15:29→23:17)
[2018-05-28] MEDS ORDERED: CLOTRIMAZOLE 28.35 GM CREAM TOPICAL ONE (17:29)
[2018-05-28] MEDS: LORazepam 1 mg tab (ETOH withdrawal) PO PRN (19:37)
[2018-05-28] MEDS: CLOTRIMAZOLE 28.35 GM CREAM TOPICAL SCH ×2 (19:37→21:15)
[2018-05-28] MEDS ORDERED: MAGNESIUM OXIDE 400 MG TABLET PO SCH (21:00)
[2018-05-29] MEDS ORDERED: MIDAZOLAM IV SCH ×2
[2018-05-29] MEDS ORDERED: SODIUM CHLORIDE 0.9% IV SCH ×2
[2018-05-29] MEDS: LORazepam 1 mg tab (ETOH withdrawal) PO PRN ×2 (01:46→03:59)
[2018-05-29 05:12] LABS: BLOOD UREA NITROGEN 9 mg/dL (7-22); SERUM ALBUMIN 4.6 g/dL (3.5-4.8)
[2018-05-29] MEDS ORDERED: LORazepam 2 MG/1 ML VIAL IVP SCH ×3 (05:30→11:30)
[2018-05-29] MEDS: ChlordiazePOXIDE Cap 25 MG CAPSULE PO SCH (06:08)
[2018-05-29] MEDS: LORazepam Inj(ETOH withdrawal) 2 MG/ML VIAL IVP PRN ×2 (06:08→07:26)
[2018-05-29] MEDS ORDERED: OMEPRAZOLE 20 MG CAPSULE PO SCH (07:00)
[2018-05-29] MEDS ORDERED: ESCITALOPRAM 10 MG TABLET PO SCH (07:00)
[2018-05-29] MEDS ORDERED: LORazepam 2 MG/1 ML VIAL IVP STA ×2 (08:03→08:34)
[2018-05-29] MEDS ORDERED: Dexmedetomidine/NS 400 MCG/100 ML INFUS..BTL IV SCH (08:15)
[2018-05-29] MEDS ORDERED: LORazepam 1 mg tab (ETOH withdrawal) PO PRN (08:48)
[2018-05-29] MEDS ORDERED: MAGNESIUM 400 MG/5 ML - 30 ML (MILK OF MAGNESIA) PO PRN (08:48)
[2018-05-29] MEDS ORDERED: MAG HYDROX/AL HYDROX/SIMETH 30 ML SUSP PO PRN (08:48)
[2018-05-29] MEDS ORDERED: Loperamide Tab 2 MG TABLET PO PRN (08:48)
[2018-05-29] MEDS ORDERED: ONDANSETRON 4 MG/2 ML VIAL IVP PRN (08:48)
[2018-05-29] MEDS ORDERED: NICOTINE 21 MG /DAY PATCH TRANSDERM PRN (08:48)
[2018-05-29] MEDS ORDERED: LIDOCAINE W/ SODIUM BICARB 0.5 ML SYR SUBD PRN (08:48)
[2018-05-29] MEDS ORDERED: LORazepam Inj(ETOH withdrawal) 2 MG/ML VIAL IVP PRN (08:48)
[2018-05-29] MEDS ORDERED: MAGNESIUM OXIDE 400 MG TABLET PO SCH (09:00)
[2018-05-29] MEDS ORDERED: CLOTRIMAZOLE 28.35 GM CREAM TOPICAL SCH (09:00)
[2018-05-29] MEDS ORDERED: Sodium Chloride 0.9% 1,000 ML PRIMARY IV SCH (09:15)
[2018-05-29] MEDS: Dexmedetomidine/NS 400 MCG/100 ML INFUS..BTL IV SCH ×2 (09:15→15:14)
--- NOTE | 2018-05-29 11:36 | PDOC(PROG) ---
Date of Service: 05/29/18 Time of Service: 08:25 Interval History: patient tried to leave against medical advice, got down the elevator and came back to floor when he realized there was no ride. His mother reported the patient snorts ritalin, methamphetamines, and cocaine. urine drug screen is pending. no chest pain and no shortness of breath. The patient is not oriented to place or time. He keeps stating the building he is in is the [facility]. no nausea or vomiting. Objective : Data - Labs CBC and BMP: 05/28/18 08:28 05/29/18 04:15 Additional Lab Results: 05/29/18 04:15 Calcium 9.3 Magnesium 2.4 Total Bilirubin 1.5 H AST 75 H ALT 66 Alkaline Phosphatase 44 Total Protein 7.6 Albumin 4.6 Globulin 3.0 Albumin/Globulin Ratio 1.50 Objective : Exam - General General Appearance: No Acute Distress Additional General Exam Details: agitated Vital Signs - Last Taken Temperature 97 F 05/29/18 08:00 Pulse Rate 74 05/29/18 11:00 Respiratory Rate 16 05/29/18 11:00 Blood Pressure 136/86 05/29/18 11:00 Pulse Ox 92 05/29/18 11:00 - Eye Eye Exam: No Scleral Icterus - ENT ENT Exam: Mucous Membranes Moist - Neck Neck Exam: JVP is not Raised - Respiratory Respiratory Exam: Clear to Auscultation - Bilaterally, Breathing Non Labored - Cardiovascular Cardiovascular Exam: No Murmur, No Clicks, No Gallops, No Rubs, Tachycardia (on my examination) - GI/Abdominal GI/Abdominal Exam: Normal Bowel Sounds, Non Tender, Non Distended, Soft - Extremities Extremities Exam: No Clubbing Present, No Edema Present, No Cyanosis Present - Neurological Neurological Exam: Alert, No Facial Droop, Speech Intact / Clear, Moves All Extremities Equally, Altered - Psychiatric Psychiatric Exam: Anxious, Agitated Assessment and Plan - Patient Problems (1) Alcohol withdrawal Current Visit: Yes Status: Acute Code(s): F10.239 - Alcohol dependence with withdrawal, unspecified Qualifiers: Complication of substance-induced condition: with perceptual disturbance Qualified Code(s): F10.232 - Alcohol dependence with withdrawal with perceptual disturbance (2) Alcohol abuse Current Visit: Yes Status: Acute Code(s): F10.10 - Alcohol abuse, uncomplicated (3) Depression Current Visit: Yes Status: Acute Code(s): F32.9 - Major depressive disorder, single episode, unspecified Qualifiers: Depression Type: other depression Qualified Code(s): F32.89 - Other specified depressive episodes - Assessment / Plan Additional Assessment/Plan Details: admit to ICU, start precedex, continue CIWA protocol gave 10 mg total of ativan to calm down developing delirium tremens await urine drug screen labs in AM
[2018-05-29] MEDS ORDERED: Magnesium Sulfate 2gm (Premix) 2 GM/50 ML BAG IV ONE (11:37)
[2018-05-29] MEDS ORDERED: Sodium Chloride 0.9% 1,000 ML with Multivitamin Inj 10 ML, Thiamine Inj 100 MG, Folic A... IV SCH ×5 (12:06)
[2018-05-29] MEDS ORDERED: ChlordiazePOXIDE Cap 25 MG CAPSULE PO SCH (12:06)
[2018-05-29] MEDS ORDERED: HALOPERIDOL LACTATE 5 MG/1 ML AMPULE ONE (12:58)
[2018-05-29] MEDS ORDERED: MIDAZOLAM HCL 50 MG/10 ML VIAL IV ONE (13:45)
[2018-05-29] MEDS ORDERED: DIAZEPAM 10 MG/2 ML (5 MG/1 ML) CARPUJECT IVP ONE (13:45)
[2018-05-29] MEDS ORDERED: SUCCINYLCHOLINE CHLORIDE 20 MG/1 ML - 10 ML ONE (13:45)
[2018-05-29] MEDS ORDERED: NORMAL SALINE 100 ML IV ONE (13:45)
[2018-05-29] MEDS ORDERED: ETOMIDATE 2 MG/1 ML - 20 ML IVP ONE (13:45)
[2018-05-29] MEDS ORDERED: Propofol 1,000 MG/100 ML VIAL IV ONE ×3 (13:48→17:02)
[2018-05-29] MEDS ORDERED: ROCURONIUM 10 MG/1 ML - 5 ML VIAL IVP ONE ×2 (14:26→16:59)
[2018-05-29] MEDS ORDERED: MORPHINE SULFATE 10 MG/1 ML ONE ×2 (14:30→16:59)
[2018-05-29 14:50] LABS: ABG BASE EXCESS -2 MMOL/L (-2-2); ABG OXYGEN SATURATION 97 % (90-100); ABG PCO2 20 MMHG (34-38); ABG PO2 72 MMHG (65-75); ALLEN TEST YES; COLLECTION SITE LEFT RADIAL
[2018-05-29 15:00] LABS: AMPHETAMINE SCREEN NEGATIVE (NEG); CANNABINOID SCREEN,URINE NEGATIVE (NEG); COCAINE SCREEN NEGATIVE (NEG); METHADONE URINE SCREEN NEGATIVE (NEG); METHAMPHETAMINES SCREEN,URINE NEGATIVE (NEG); OPIATE SCREEN,URINE POSITIVE (NEG); URINE SAMPLE TYPE CATH SPECIMEN; URINE SPECIFIC GRAVITY - MAN 1.018
--- NOTE | 2018-05-29 15:11 | DI ---
EXAM: XR Chest, 1 View CLINICAL HISTORY: ITS.REASON intubation Physician Notes: Tech Comments: TECHNIQUE: Frontal view of the chest. COMPARISON: Chest radiograph on 05/28/2018 FINDINGS: Hardware: Interval treatment of an endotracheal tube which terminates in the region of the upper thoracic trachea. Interval placement of an enteric tube which courses past the diaphragm and out of the field of view. Lungs/pleura: Mild atelectasis in the right medial lung base. No focal consolidation. No pleural effusion or pneumothorax. Heart/mediastinum: Normal. No cardiomegaly. Soft tissues: Unremarkable. Bones: No acute fracture. Upper abdomen: Normal. IMPRESSION: Interval treatment of an endotracheal tube which terminates in the region of the upper thoracic trachea. Interval placement of an enteric tube which courses past the diaphragm and out of the field of view.
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
[2018-05-30] MEDS ORDERED: OMEPRAZOLE 20 MG CAPSULE PO SCH (07:00)
[2018-05-30] MEDS ORDERED: ESCITALOPRAM 10 MG TABLET PO SCH (07:00)
[2018-05-30] MEDS ORDERED: Patch Removal NICOTINE PATCH TRANSDERM SCH (09:00)
[2018-05-31] MEDS ORDERED: Multivitamin Tab 1 TAB PO SCH ×2 (09:00)
[2018-06-02] MEDS ORDERED: Thiamine Tab 100 MG TAB PO SCH ×2 (10:41)
== END 2018-05-29 17:20 | disposition short-term general hospital (02) | DRG 897 ==
LOC: ER 08:16 → MED/SURG 10:57 → ICU 05-29 08:23
PROVIDERS: ADMIT Family Medicine; ATTEND Family Medicine